=== PATIENT | male | born 1965 | race Caucasian/White ===

== ENCOUNTER 2024-02-15 07:32 | Day surgery (SDC) | payer BC ==
[2024-02-15] MEDS: Lactated Ringers 1,000 ML IV SCH (07:41)
[2024-02-15] MEDS ORDERED: fentaNYL 50 MCG/ML SDV ONE (08:05)
[2024-02-15] MEDS ORDERED: Ketamine 200 MG/20 ML MDV ONE (08:05)
[2024-02-15] MEDS ORDERED: Propofol 200 MG/20 ML SDV ONE ×2 (08:05)
== END 2024-02-15 09:35 | disposition home or self-care (01) ==
LOC: CC.SDS 07:32
PROVIDERS: ATTEND Family Medicine
DX: Z12.11 Encounter for screening for malignant neoplasm of colon (principal); D12.0 Benign neoplasm of cecum; D12.5 Benign neoplasm of sigmoid colon; J45.909 Unspecified asthma, uncomplicated; E10.9 Type 1 diabetes mellitus without complications; E78.5 Hyperlipidemia, unspecified; N40.1 Benign prostatic hyperplasia with lower urinary tract symptoms; Z79.82 Long term (current) use of aspirin; Z79.899 Other long term (current) drug therapy
CPT/HCPCS: 00811; J2704; J3010; J3490; J7120